=== PATIENT | male | born 2000 | race Caucasian/White ===

== ENCOUNTER 2020-12-03 08:04 | Emergency (ER) | payer OTHER, SELFPAY ==
[2020-12-03 08:24] VITALS: BP 115/81; PULSE 71; RESP 18; TEMP 37.1; O2SAT 100; BMI 18.8
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
== END 2020-12-03 08:50 | disposition home or self-care (01) ==
LOC: HO.ED 08:45
PROVIDERS: Emergency Provider Emergency Medicine
DX: S39.012A Strain of muscle, fascia and tendon of lower back, initial encounter (principal); V43.52XA Car driver injured in collision with other type car in traffic accident, initial encounter; M54.2 Cervicalgia; Y93.9 Activity, unspecified; Y92.410 Unspecified street and highway as the place of occurrence of the external cause; Y99.9 Unspecified external cause status; Z79.899 Other long term (current) drug therapy
CPT/HCPCS: 99283

== ENCOUNTER 2021-06-07 08:45 | Emergency (ER) | payer OTHER, SELFPAY ==
--- NOTE | ~2021-06-07 | XR_ITS ---
EXAMINATION: LEFT WRIST AND LEFT HAND. CLINICAL INFORMATION: Left wrist pain and left hand pain. COMPARISON: None TECHNIQUE: 4 views left wrist and 3 views left hand. FINDINGS: Left wrist: There is no visible fracture, dislocation or subluxation. The intercarpal and radial ulnar carpal joint space is maintained. The scaphoid bone is intact. The soft tissues are intact. Left hand: There is no visible acute fracture, dislocation or subluxation seen. The soft tissues are normal. PIP, DIP and MCP joint space is maintained normal. The soft tissues are normal. XR/XR hand LT min 3V IMPRESSION: Unremarkable left hand exam. Unremarkable left wrist exam.
--- NOTE | ~2021-06-07 | XR_ITS ---
EXAMINATION: LEFT WRIST AND LEFT HAND. CLINICAL INFORMATION: Left wrist pain and left hand pain. COMPARISON: None TECHNIQUE: 4 views left wrist and 3 views left hand. FINDINGS: Left wrist: There is no visible fracture, dislocation or subluxation. The intercarpal and radial ulnar carpal joint space is maintained. The scaphoid bone is intact. The soft tissues are intact. Left hand: There is no visible acute fracture, dislocation or subluxation seen. The soft tissues are normal. PIP, DIP and MCP joint space is maintained normal. The soft tissues are normal. XR/XR wrist LT min 3V IMPRESSION: Unremarkable left hand exam. Unremarkable left wrist exam.
[2021-06-07 09:01] VITALS: BP 98/48; PULSE 70; RESP 14; TEMP 36.8; O2SAT 100; BMI 27.3
--- NOTE | 2021-06-07 09:44 | ED_ITS ---
HPI - Extremity Problem General Chief complaint: Extremity Injury, Upper Stated complaint: Wrist pain Time Seen by Provider: 06/07/21 09:13 Source: patient Mode of arrival: ambulatory Limitations: no limitations History of Present Illness HPI Narrative: Presents to ED for 2 weeks of left wrist pain that is worse on flexion and extension. 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 Patient denies any blunt trauma to the wrist, falling, swelling, redness, numbness,/tingling, or paralysis. MD Complaint: extremity pain Related Data Previous Rx's Medication Instructions Recorded cyclobenzaprine 5 mg tablet 5 mg PO BEDTIME PRN #14 tab 12/03/20 ibuprofen 800 mg tablet 800 mg PO Q8H PRN #30 tab 12/03/20 cyclobenzaprine 10 mg tablet 10 mg PO TID PRN #18 tab 06/07/21 naproxen 500 mg tablet 500 mg PO BID PRN #20 tab 06/07/21 Allergies Allergy/AdvReac Type Severity Reaction Status Date / Time No Known Allergies Allergy Verified 12/03/20 08:28 [No Known Allergies*] Review of Systems Review of Systems: Yes all other systems are reviewed and are negative and unobtainable due to endotracheal tube Constitutional: Constitutional: Reports as per HPI and Reports no additional constitutional complaints Eyes: Eyes: Reports as per HPI and Reports no additional eye complaints ENT: Reports system reviewed and no additional complaints, except as documented and Reports as per HPI Cardiovascular: Cardiovascular: Reports as per HPI and Reports no additional cardiovascular complaints Respiratory: Respiratory: Reports as per HPI and Reports no additional respiratory complaints Gastrointestinal: Gastrointestinal: Reports as per HPI and Reports no a dditional gastrointestinal complaints Genitourinary: Genitourinary: Reports no additional male genitourinary complaints and Reports as per HPI Musculoskeletal: Musculoskeletal: Reports no additional musculoskeletal complaints and Reports as per HPI Comments: Left wrist pain Neurologic: Reports system reviewed and no additional complaints, except as documented and Reports Abnormal speech present Psychiatric: Psychiatric: Reports no additional psychiatric complaints and Reports as per HPI [facility] Past Medical History Medical History (Updated 06/07/21 @ 09:54 by AMY Gasca) Asthma Social History Social History Advance Directives: No Advance Directives Information Provided: No Physical Exam Vital Signs: Vital Signs: Last Vital Signs Temp 98.3 F 06/07/21 09:01 Pulse 70 06/07/21 09:01 Resp 14 06/07/21 09:01 BP 98/48 L 06/07/21 09:01 Pulse Ox 100 06/07/21 09:01 Body Mass Index 27.3 Const: General: cooperative, healthy appearing, comfortable, no acute distress, well developed and alert Orientation/consciousness: patient oriented x3 HENMT: Head: Yes normal to inspection, Yes No palpable skull fracture present, Yes normocephalic and Yes atraumatic Eyes: General: appearance normal, both eyes and all related structures Neck: Neck: Yes normal visual inspection, Yes full ROM, Yes no lymphadenopathy, Yes no meningeal signs, Yes trachea midline, Yes supple and No tender Chest: Chest palpation & inspection: normal inspection of the chest and normal palpation of entire chest wall Resp: Effort & Inspection: normal respiratory effort and able to speak in complete sentences Auscultation: clear to auscultation bilaterally Cardio: Jugular venous distension: no JVD Heart sounds: S1 normal heart sound present and S2 normal heart sound present GI: Inspection: Yes normal to inspection and Yes abdominal wall ecchymosis Palpation (GI): Soft to palpation, not firm, nontender, no guarding and not rigid : General: No CVA tenderness and Yes no CVA tenderness Back/Spine/Pelvis: Back: no CVA tenderness, No CVA tenderness, No dyeing machine back tender ness and No Fierro-Marshall sign present Skin: General skin exam: no rashes or lesions noted and elasticity normal Neuro: General: patient oriented x3, gait normal, no meningeal signs and CN's II-XI intact bilaterally Cranial nerves: Yes CN's II-XII intact bilaterally Cognition (Neuro): normal cognition Speech: Abnormal speech present Gait exam (Neuro): Normal gait present Motor exam (neuro): 5/5 motor strength present throughout Extrem: General: Yes normal to inspection and Yes full ROM Hand/finger images: 1. Mild tenderness on palpation. Negative for any deformity or redness. Complete range of motion, but pain on range motion. Negative for elasticity. Negative for erythema. Negative for swelling. Negative Phalen or Tinel sign Motor/neuro/vascular exam intact. Course Course Course Narrative: Patient will be sent for x-ray Reevaluation(s) Reevaluation #1: X-ray negative for any fractures. Patient placed in Eddie wrap. Diagnosis wrist sprain Time: 09:52 MDM - Extremity (Nontraumatic) MDM Narrative Medical decision making narrative: Wrist sprain Discharge Plan Discharge Clinical Impression: Sprain and strain of wrist Patient Disposition: Home, Self-Care Instructions: Wrist Sprain (ED) Additional Instructions: X-rays came back negative for fractures. Will need follow-up with PCP for MRI if pain continues. Return to ED for any swelling, redness, numbness/tingling, paralysis, chest pain, shortness of breath, or any other concerning symptoms. Please follow-up with the PCP. Prescriptions: New naproxen 500 mg tablet 500 mg PO BID PRN (Reason: pain) Qty: 20 RF: 0 cyclobenzaprine 10 mg tablet 10 mg PO TID PRN (Reason: pain) Qty: 18 RF: 0 No Action ibuprofen 800 mg tablet 800 mg PO Q8H PRN (Reason: pain) Qty: 30 RF: 0 cyclobenzaprine 5 mg tablet 5 mg PO BEDTIME PRN (Reason: muscle spasm) Qty: 14 RF: 0 Referrals: [facility] [Provider Group] - 2 days (Left wrist sprain due to lifting boxes at work) Stand Alone Forms: Work/School Release Interventions: ED Discharge Assessment Last Done: 06/07/21 10:15 Discharge Date/Time: 06/07/21 10:10 Print Language: French
== END 2021-06-07 10:10 | disposition home or self-care (01) ==
PROVIDERS: Emergency Provider Student in an Organized Health Care Education/Training Program
DX: S63.502A Unspecified sprain of left wrist, initial encounter (principal); M25.532 Pain in left wrist; X50.0XXA Overexertion from strenuous movement or load, initial encounter; Y93.9 Activity, unspecified; Y92.9 Unspecified place or not applicable; Y99.0 Civilian activity done for income or pay; Z79.899 Other long term (current) drug therapy
CPT/HCPCS: 73110; 73130; 99283